=== PATIENT | female | born 1950 | race Caucasian/White ===

== ENCOUNTER 2017-02-19 11:21 | Outpatient (CLI) | payer MEDICARE, OTHER | END 2017-02-19 11:40 | LOC: D.MAMMO 11:21 | DX: Z12.31 Encounter for screening mammogram for malignant neoplasm of breast (principal) ==

== ENCOUNTER → 2017-12-17 10:30 | Outpatient (CLI) | payer MEDICARE, OTHER | END | disposition home or self-care (01) | LOC: D.MRI 10:30 | DX: R51 Headache (principal); Z86.011 Personal history of benign neoplasm of the brain ==

== ENCOUNTER 2018-11-18 14:00 | Outpatient (CLI) | payer MEDICARE, OTHER | END 2018-11-18 15:00 | disposition home or self-care (01) | LOC: D.MAMMO 14:00 | PROVIDERS: ATTEND Family Medicine | DX: Z12.31 Encounter for screening mammogram for malignant neoplasm of breast (principal) ==

== ENCOUNTER 2020-04-14 14:00 | Outpatient (CLI) | payer MEDICARE, OTHER | END 2020-04-14 23:59 | disposition home or self-care (01) | LOC: D.MAMMO 14:00 | PROVIDERS: ATTEND Family Medicine | DX: Z12.31 Encounter for screening mammogram for malignant neoplasm of breast (principal) ==